=== PATIENT | male | born 1945 | race Two or more races ===

== ENCOUNTER 2020-05-25 14:48 | Outpatient (CLI) | payer OTHER ==
[~2020-05-25] VITALS: Ht 160 cm; Wt 65.8 kg
[2020-05-25] MEDS ORDERED: HUMULIN N100 UNIT/2 (15:07)
[2020-05-25] MEDS ORDERED: METOPROLOL SUC100 MG (15:08)
[2020-05-25] MEDS ORDERED: BRILINTA90 MG (15:08)
[2020-05-25] MEDS ORDERED: ISOSORBIDE MONO30 MG (15:09)
[2020-05-25] MEDS ORDERED: LIPITOR40 M1 (15:10)
[2020-05-25] MEDS ORDERED: GLIMEPIRIDE2 M1 (15:10)
== END 2020-05-25 15:00 | disposition home or self-care (01) ==
LOC: OFIC 805 14:48
PROVIDERS: ATTEND Otolaryngology
DX: H90.3 Sensorineural hearing loss, bilateral (principal); H61.23 Impacted cerumen, bilateral